=== PATIENT | female | born 1935 | race Caucasian/White ===

== ENCOUNTER → 2016-08-08 | Outpatient (CLI) | payer MEDICARE, OTHER ==
--- NOTE | 2016-08-10 13:52 | RADRPT ---
PROCEDURE: CT Chest without contrast. CLINICAL INDICATION: History of pulmonary nodules, dyspnea TECHNIQUE: CT scan of the chest without contrast was performed on a multidetector high-resolution CT scanner. Coronal and sagittal reformatted images were obtained from the axial source images. The following dose reduction techniques were used: Automated exposure control, adjustment of the mA and /or kV according to patient size and use of iterative reconstruction technique. The total exam CTDI equals 3.6 mGy and the total exam DLP equals 141 mGy-cm. COMPARISON: 03/05/2016 FINDINGS: Scattered infiltrate in the posterior right upper lobe with tree in bud pattern as well as with a fe w small nodules, measuring up to 5 mm. The area of infiltrate has increased from previous exam and the 5 mm nodule is new compared to previous exam. There is a small focus tree in bud opacities in the anterior right middle with adjacent scarring and traction bronchiectasis, unchanged from previous exam. There is a subtle focus of tree in bud opacity with tiny nodule formations in the posterior left upp er lobe in an area which measures roughly 2 cm and is unchanged from previous exam. The left lung is otherwise clear. There is no evidence of pleural effusion, pneumothorax or pulmonary edema. The central tracheobronchial tree is clear. The mediastinum is unremarkable, without evidence of mass or lymphadenopathy. The vascular structures of the mediastinum are normal in course and caliber. Mild aortic vascular calcifications and coronary artery calcifications are present. The heart size is normal, without pericardial thickening or effusion. The axillary regions, subpectoral regions, and supraclavicular regions are unremarkable and without evidence of adenopathy. Limited imaging of the upper abdomen reveals no acute abnormality. The osseous structures are remarkable for degenerative spondylosis of the spine. No osteolytic or osteoblastic lesion is detected. IMPRESSION: 1. Upper lung zone tree in bud opacities with small nodules, increased compared to previous exam. The differential diagnosis includes MAC, TB or coccidiomycosis 2. Mild scarring and traction bronchiectasis in the right lung base, unchanged from previous exam, suggesting chronic inflammatory process. 3. Mild atherosclerotic coronary artery and peripheral vascular disease. RPTAT: QQ .Camron Dias MD, MD Date Time Electronically viewed and signed by .Camron Dias MD, on 08/10/2016 13:52 .Adrien/
== END | disposition home or self-care (01) ==
LOC: C/S 11:28
PROVIDERS: ATTEND Specialist
DX: R91.1 Solitary pulmonary nodule (principal); R06.00 Dyspnea, unspecified
CPT/HCPCS: 71250